=== PATIENT | female | born 1945 | race Two or more races ===

== ENCOUNTER → 2019-11-07 06:00 | Outpatient (CLI) | payer OTHER ==
[~2019-11-07] VITALS: Ht 162.6 cm; Wt 94.8 kg
[~2019-11-07 06:00] MED LIST: DILTIAZEM 24HR180 MG PO; OMEPRAZOLE40 MG PO; ULTRAM50 MG PO
== END | disposition home or self-care (01) ==
LOC: LAB 06:00 → EDSTATUS 11-14 09:30 → SURG 11-14 09:30
PROVIDERS: ATTEND Colon & Rectal Surgery
DX: Z01.810 Encounter for preprocedural cardiovascular examination (principal); Z20.828 Contact with and (suspected) exposure to other viral communicable diseases; C18.2 Malignant neoplasm of ascending colon; Z85.038 Personal history of other malignant neoplasm of large intestine; K92.2 Gastrointestinal hemorrhage, unspecified